=== PATIENT | male | born 1935 | race Caucasian/White ===

== ENCOUNTER 2017-09-03 18:49 | Emergency (ER) | payer MEDICARE ==
[~2017-09-03] VITALS: Ht 165.1 cm; Wt 67.7 kg
[2017-09-03] MEDS ORDERED: LOSA50TA37 PO (18:56)
[2017-09-03 20:40] VITALS: BP 125/74
[2017-12-11] MEDS ORDERED: ATOR40TA28 PO (11:52)
== END 2017-09-03 21:42 | disposition home or self-care (01) ==
LOC: EMS 18:51
DX: J20.9 Acute bronchitis, unspecified (principal); I10 Essential (primary) hypertension
CPT/HCPCS: 71020; 93005; 99284

== ENCOUNTER 2017-11-28 15:50 | Emergency (ER) | payer MEDICARE ==
[~2017-11-28] VITALS: Ht 167.6 cm; Wt 72.5 kg
[~2017-11-28 15:50] MED LIST: LOSA50TA37 PO
[2017-11-28 17:09] LABS: ANION GAP 7 mmol/L (8-16); CALCIUM, TOTAL 9.8 mg/dL (8.8-10.5); CARBON DIOXIDE 31 mmol/L (22-29); CHLORIDE 100 mmol/L (98-107); CREATININE 0.94 mg/dL (0.60-1.30); GLOMERULAR FILTR. RATE CALC > 60 mL/min (>60); GLUCOSE,RANDOM 133 mg/dL (70-110); POTASSIUM 4.5 mmol/L (3.5-5.1); SODIUM SERUM 138 mmol/L (136-145); UREA NITROGEN, BLOOD 19 mg/dL (7-18)
[2017-11-28 17:14] LABS: ALANINE AMINOTRANSFERASE 118 U/L (12-78); ALBUMIN 4.1 g/dL (3.4-5.0); ALKALINE PHOSPHATASE 96 U/L (46-116); ASPARTATE AMINOTRANSFERASE 178 U/L (15-37); BILIRUBIN,TOTAL 0.9 mg/dL (0.1-1.0); LIPASE 184 U/L (73-393); TOTAL PROTEIN, SERUM 7.6 g/dL (6.4-8.2)
[2017-11-28 17:57] LABS: BASOPHILS % (AUTO) 0.3 % (0.0-2.0); EOSINOPHILS % (AUTO) 0.7 % (1.0-6.0); HEMATOCRIT 36.4 % (41-53); HEMOGLOBIN 12.6 g/dL (13.5-17.5); LYMPHOCYTES # (AUTO) 0.9 K/uL (1.0-4.8); MEAN CORPUSCULAR HEMOGLOBIN 33.5 pg (26.0-34.0); MEAN CORPUSCULAR HGB CONC 34.6 G/dL (31.0-37.0); MEAN CORPUSCULAR VOLUME 97 fL (80-100); MONOCYTES # (AUTO) 0.8 K/uL (0.1-1.0); NEUTROPHILS # (AUTO) 9.5 K/uL (1.8-7.7); PLATELET COUNT (AUTO) 153 K/uL (150-450); RED BLOOD CELL COUNT(AUTO) 3.76 MIL/uL (4.50-5.90)
[2017-11-28 22:04] LABS: APPEARANCE,URINE CLEAR (CLEAR); BILIRUBIN,URINE NEGATIVE (NEGATIVE); GLUCOSE, URINE (UA) NEGATIVE (NEGATIVE); KETONES,URINE TRACE mg/dL (NEGATIVE); LEUKOCYTE ESTERASE ,URINE NEGATIVE (NEGATIVE); NITRATE,URINE NEGATIVE (NEGATIVE); OCCULT BLOOD,URINE NEGATIVE (NEGATIVE); PH,URINE 7.5 (5.0-8.0); PROTEIN,URINE NEGATIVE (NEGATIVE); UROBILINOGEN,URINE 0.2 mg/dL (<=1.0)
[2017-11-28 22:08] VITALS: BP 145/71
[2017-12-11] MEDS ORDERED: ATOR40TA28 PO (11:52)
== END 2017-11-28 22:33 | disposition home or self-care (01) ==
LOC: EMS 15:55
DX: K80.20 Calculus of gallbladder without cholecystitis without obstruction (principal); I10 Essential (primary) hypertension; E78.00 Pure hypercholesterolemia, unspecified
CPT/HCPCS: 74176; 93005; 99285

== ENCOUNTER 2017-12-12 08:52 | Day surgery (SDC) | payer MEDICARE ==
[~2017-12-12] VITALS: Ht 162.6 cm; Wt 66.4 kg
[~2017-12-12 08:52] MED LIST changes: +ATOR40TA28 PO; +CeFAZolin 2 GM/DEXTROSE 50 ML IV ONE; +RINGERS SOLUTION,LACTATED 1,000 ML IV ONE
[2017-12-12] MEDS ORDERED: ONDANSETRON HCL 4 MG/2 ML VIAL IVP ONE (08:53)
[2017-12-12] MEDS ORDERED: MIDAZOLAM HCL 2 MG/2 ML VIAL IVP ONE (08:53)
[2017-12-12] MEDS ORDERED: KETOROLAC TROMETHAMINE 60 MG/2 ML VIAL IM ONE (08:53)
[2017-12-12] MEDS ORDERED: FentaNYL CITRATE-PF 100 MCG/2 ML VIAL IVP ONE (08:53)
[2017-12-12] MEDS ORDERED: LIDOCAINE HCL/PF 2% 5 ML VIAL IM ONE (08:53)
[2017-12-12] MEDS ORDERED: ROCURONIUM BROMIDE 10 MG/ML 5 ML VIAL IVP ONE (08:53)
[2017-12-12] MEDS ORDERED: PROPOFOL 1% 20 ML VIAL IVP ONE (08:53)
[2017-12-12] MEDS ORDERED: DEXAMETHASONE SOD PHOS 4 MG/ML VIAL IVP ONE (08:53)
[2017-12-12] MEDS ORDERED: GLYCOPYRROLATE 0.2 MG/ML VIAL IM ONE (08:53)
[2017-12-12] MEDS ORDERED: NEOSTIGMINE METHYLSULFATE 1 MG/ML 10 ML VIAL IVP ONE (08:53)
[2017-12-12] MEDS ORDERED: ESMOLOL HCL 10 MG/ML 10 ML VIAL IVP ONE (08:53)
[2017-12-12 09:22] LABS: BASOPHILS % (AUTO) 0.9 % (0.0-2.0); EOSINOPHILS % (AUTO) 3.5 % (1.0-6.0); HEMATOCRIT 39.4 % (41-53); HEMOGLOBIN 13.8 g/dL (13.5-17.5); LYMPHOCYTES # (AUTO) 1.5 K/uL (1.0-4.8); LYMPHOCYTES % (AUTO) 32.5 % (22.0-44.0); MEAN CORPUSCULAR HEMOGLOBIN 33.6 pg (26.0-34.0); MEAN CORPUSCULAR HGB CONC 35.1 G/dL (31.0-37.0); MEAN CORPUSCULAR VOLUME 96 fL (80-100); MONOCYTES # (AUTO) 0.3 K/uL (0.1-1.0); MONOCYTES % (AUTO) 7.4 % (2.0-9.0); NEUTROPHILS # (AUTO) 2.5 K/uL (1.8-7.7); NEUTROPHILS % (AUTO) 55.7 % (40.0-70.0); PLATELET COUNT (AUTO) 203 K/uL (150-450); RED BLOOD CELL COUNT(AUTO) 4.11 MIL/uL (4.50-5.90); RED CELL DISTRIBUTION WIDTH 13.6 % (11.5-14.5)
[2017-12-12 09:32] LABS: ANION GAP 7 mmol/L (8-16); CALCIUM, TOTAL 9.2 mg/dL (8.8-10.5); CARBON DIOXIDE 30 mmol/L (22-29); CHLORIDE 99 mmol/L (98-107); CREATININE 1.05 mg/dL (0.60-1.30); GLOMERULAR FILTR. RATE CALC > 60 mL/min (>60); GLUCOSE,RANDOM 104 mg/dL (70-110); POTASSIUM 3.7 mmol/L (3.5-5.1); SODIUM SERUM 136 mmol/L (136-145); UREA NITROGEN, BLOOD 13 mg/dL (7-18)
[2017-12-12] MEDS ORDERED: BUPIVACAINE HCL/PF 0.5% 10 ML VIAL INJ ONE (10:06)
[2017-12-12] MEDS ORDERED: LIDOCAINE HCL 2%/EPI 1:200,000/PF 10 ML VIAL INJ ONE (10:06)
[2017-12-12] MEDS ORDERED: FentaNYL CITRATE-PF 100 MCG/2 ML VIAL IVP PRN (10:15)
[2017-12-12] MEDS ORDERED: RINGERS SOLUTION,LACTATED 1,000 ML IV ONE (10:16)
[2017-12-12] MEDS ORDERED: IBUPROFEN 600 MG TABLET PO PRN (11:15)
[2017-12-12] MEDS ORDERED: ACETAMINOPHEN 500 MG TABLET PO PRN (11:15)
[2017-12-12] MEDS ORDERED: HYDROCODONE/ACETAMINOPHEN 5-325 MG TABLET PO PRN (11:15)
[2017-12-12] MEDS ORDERED: OXYGEN THERAPY IH SCH (20:00)
== END 2017-12-12 12:50 | disposition home or self-care (01) ==
LOC: SURGERY 08:52
PROVIDERS: ATTEND Surgery
DX: K40.90 Unilateral inguinal hernia, without obstruction or gangrene, not specified as recurrent (principal); D17.6 Benign lipomatous neoplasm of spermatic cord; I10 Essential (primary) hypertension; E78.5 Hyperlipidemia, unspecified; F10.21 Alcohol dependence, in remission; Z98.890 Other specified postprocedural states; Z87.891 Personal history of nicotine dependence; Z79.899 Other long term (current) drug therapy
CPT/HCPCS: 36415; 49650; 80048; 85025; 88304; 93005; C1781; J0690; J1100; J1885; J2250; J2405; J2704; J3010; J3490 ×5; J7120